=== PATIENT | female | born 1955 ===

== ENCOUNTER 2019-04-29 12:57 | Day surgery (SDC) | payer OTHER ==
[~2019-04-29 12:57] MED LIST: Buffered Lidocaine 1% SYRIN* 1 ML/SYRINGE INTRADERM ONE; Lactated Ringers 1000 ML Bag* 1,000 ML IV SCH
[2019-04-29] MEDS ORDERED: ceFAZolin 2 GM in NS PREMIX(*) 2 GM/100 ML BAG IVPB ONE (13:25)
[2019-04-29] MEDS ORDERED: fentaNYL* 50 MCG/ML 2 ML VIAL (100 MCG VIAL) ONE ×3 (15:05→17:54)
[2019-04-29] MEDS ORDERED: Midazolam* 1 MG/ML 2 ML VIAL (2 MG) ONE (15:05)
[2019-04-29] MEDS ORDERED: HYDROmorphone INJ1* 1 MG/ML SYRINGE IV PRN (16:54)
[2019-04-29] MEDS ORDERED: Acetaminophen TAB* 325 MG PO PRN (16:54)
[2019-04-29] MEDS ORDERED: Ketorolac INJ* 30 MG/ML 1 ML VIAL IV PRN (16:54)
[2019-04-29] MEDS ORDERED: Naloxone* 0.4 MG/ML 1 ML VIAL IV PRN (16:54)
[2019-04-29] MEDS ORDERED: HYDROcodone/ACETAMIN 5-325 MG* 1 TAB PO PRN (16:54)
[2019-04-29] MEDS ORDERED: fentaNYL* 50 MCG/ML 2 ML VIAL (100 MCG VIAL) IV PRN (16:54)
[2019-04-29] MEDS ORDERED: Bupivacaine 0.5% W/EPI SDV* 30 ML VIAL ONE (17:04)
[2019-04-29] MEDS ORDERED: Succinylcholine* 20 MG/ML 10 ML VIAL ONE (17:13)
[2019-04-29] MEDS ORDERED: Ondansetron INJ* 2 MG/ML VIAL ONE (17:13)
[2019-04-29] MEDS ORDERED: Dexamethasone IV* 4 MG/ML 1 ML (4 MG) ONE (17:13)
[2019-04-29] MEDS ORDERED: Propofol* 10 MG/ML 20 ML BTL ONE (17:13)
[2019-04-29] MEDS ORDERED: EPHEDrine (Pressors)* 50 MG/ML VIAL ONE ×2 (17:14)
[2019-04-29] MEDS ORDERED: Lidocaine 2% PF * 5 ML VIAL ONE (17:14)
[2019-04-29] MEDS ORDERED: Phenylephrine 40 MCG/ML SYRINGE ONE (17:14)
[2019-04-29] MEDS ORDERED: hydrALAZINE IV* 20 MG/ML VIAL ONE (19:31)
[2019-04-29 20:18] VITALS: BP 159/94
[2019-04-29] MEDS ORDERED: HYDROcodone/ACETAMIN 5-325 MG* 1 TAB ONE (20:26)
--- NOTE | 2019-04-30 21:45 | OP ---
OPERATIVE REPORT: DATE OF OPERATION: 04/29/19 DATE OF : 57 SURGEON: Filemon Cardona MD BATCH UNLOADER: HEENA Ruffin ANESTHESIOLOGIST: Dr. Marisel Sandoval. ANESTHESIA: General anesthesia, local anesthesia with 20 cc of Marcaine 0.5% with epinephrine. PRE-OP DIAGNOSES: 1. Left clavicle midshaft fracture. 2. Left clavicle lateral fracture. POST-OP DIAGNOSES: 1. Left clavicle midshaft fracture. 2. Left clavicle lateral fracture. OPERATIVE PROCEDURE: 1. Open reduction and internal fixation, left clavicle fracture. 2. Modifier 22 for an unusual or complex procedure given the complex nature of this fracture requiri ng more than the average amount of time, skill and effort for a clavicle fracture. This clavicle fra cture was unusual and then it had a medial midshaft component, a classic midshaft fracture as well as a classic lateral clavicle fracture. As a result, there was a very long segmental piece of bone, ma nate the clavicle particularly unstable. As well, the 2 fracture lines were transverse and not obliq ue, obviating the possibility of a good lag screw provisional or final fixation. The fracture as a r esult required a plate almost the entire length of the clavicle, which required more than the average amount of plate contouring. ANTIBIOTICS: 2 g Ancef IV. IV FLUIDS: See Anesthesia note. [id number] TIME: 112 minutes. RADIATION EXPOSURE: C-arm use. 9.4 seconds for an exposure of 0.35299. SPECIMENS: None. IMPLANTS: Synthes superior plate, 8 holes, with lateral extension. ESTIMATED BLOOD LOSS: Minimal. COMPLICATIONS: None. 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 The patient went to the emergency department and a CT scan was performed of her head. Head and neck cleared. No clear concussion. The patient did, however, fracture her left clavicle. She was placed in a sling and saw me in clinic. I reviewed pros and cons of operative and nonoperative treatment for this injury. I spoke to the latoya ent about the added complexity of this fracture given its typical midshaft location and then its typi vanita separate lateral clavicle location with a long intercalary segmental fracture fragment. The latoya ent opted to move forward with surgery. I discussed risks and potential complications of surgery inc luding bleeding, infection, nerve or blood vessel injury, painful hardware, need for hardware removal , nonunion. DESCRIPTION OF PROCEDURE: In preoperative holding, the patient signed a written consent form. Opera tive extremity was marked in preoperative holding. The patient was taken back to the operating room and placed supine on operating room table. The patient was sedated and intubated. The patient was pl aced into the beach chair position. The left shoulder was prepped and draped. Surgical time-out per formed. I made a skin incision overlying the superior aspect of the clavicle. Dissected down to bone. Used electrocautery to stop bleeding. The patient had slightly more than the average amount of bleeding f or clavicle fracture while incising from skin to bone. Part of this could be because the patient's b lood pressure was especially volatile and labile. She had had elevated blood pressure preoperatively , quite so, in preoperative holding and had opted to proceed forward with surgery, after discussing w ith myself and Anesthesia the possibility of increased risk of complications. Bleeding was stopped. Dissected about the 2 major fracture sites. The visible component of the fracture line laterally, wholly transverse. I tried my best to place a lag screw. I drilled from lateral and superior to medial and inferior and placed a 2.7 mm fully thre aded screw. Unfortunately, this did not get good purchase. Ultimately, I removed it later. I next addressed the midshaft clavicle fracture. It was very difficult to reduce with clamps because of its nearly transverse nature. I attempted to place a lag screw from anterior and medial to poste rior and lateral. That did not get good bite with a 2.7 mm screw, so I also removed that. I ultimately decided to just manually reduce all [address] a long superior plate . I only had 2 options for plates, the longest 8-hole plates superior with lateral extension or the madelin gest anterosuperior curved plate. I had contacted the rep preoperatively to make sure that they had available that longest plate in their system. I placed the plate, placed a nonlocking screw through it and attempted reduction of all fracture frag ments. The plate did not fit the bone well enough. I removed the screw and plate. I contoured the plate adding some flexion both lateral and medial. I replaced the plate on reduced bone fragments an d placed a nonlocking screw through the middle fragment, the medial fragment and the lateral fragment . This plate was pushed nicely down to bone with the coronal view. Looking axially, part of the plate was slightly anterior to the middle fragment, but that was good enough. I obtained C-arm x-ray images, which showed excellent reduction of bone and excellent placement of pl ate. The plate appeared to end just at the lateral most end of the clavicle. I was actively probing where the AC joint was with a spinal needle prior to plate placement and I was careful not to place the plate into the AC joint. I think that 3-dimensional imaging would support this even better than the 2-dimensional x-ray. With bone well reduced and plate well placed, I then proceeded to place some additional nonlocking sc rews where I could get a little bit more plate contour and where needed to get the best bone purchase of the screw. I then filled the plate with locking screws 3.5 mm in the medial and middle fragments and 2.7 mm in the most distal. I took some final films. I shortened several of the screws and then took final x- ray films again. Irrigated well the wound. I should say that there was no significant, severe distal clavicle elevation as sometimes seen when y ou reduce a lateral clavicle fracture and the AC joint to stabilize this. Therefore, no coracoclavic ular tape was required. I closed the wound, with [id number] stitches using Vicryl 0 suture and the deltotrapezial-pector al fascia. I then placed [id number] stitches using Vicryl 2-0 suture in some more superficial f ascia and deep subcutaneous tissue. I then in the subcutaneous layer placed buried simple stitches u sing Vicryl 2-0 and Vicryl 3-0 sutures. I then closed the subcuticular layer with a running stitch u sing Monocryl 4-0 suture. Mastisol, Steri-Strips, 4x4s, Tegaderm. I then placed 20 cc of local anesthetic, to block supraclavi cular nerves running to the fracture site. The patient was placed in a sling, awakened and extubated . The patient was transferred to the PACU. DISPOSITION: The patient will wear a sling. Wound care instructions provided. Percocet as needed fo r pain control. Short course of Keflex to prevent infection. Because of the timing of today's surger y, the date, the patient will follow up 10 days postoperatively in [facility]. [id number]/[facility] #: [id number]
== END 2019-04-29 20:40 | disposition home or self-care (01) ==
LOC: OR 12:57
PROVIDERS: ATTEND Orthopaedic Surgery
DX: S42.022A Displaced fracture of shaft of left clavicle, initial encounter for closed fracture (principal); S42.032A Displaced fracture of lateral end of left clavicle, initial encounter for closed fracture; V80.010A Animal-rider injured by fall from or being thrown from horse in noncollision accident, initial encounter; Y93.52 Activity, horseback riding; Y92.9 Unspecified place or not applicable
CPT/HCPCS: 76000; 93005; C1713; C1776; J0330; J0360; J0690; J1100; J2250; J2405; J2704; J3010